=== PATIENT | male | born 1955 | race Two or more races ===

== ENCOUNTER 2017-07-19 01:22 | Emergency (ER) | payer MEDICARE, OTHER ==
[~2017-07-19] VITALS: Ht 165.1 cm; Wt 83.5 kg
[2017-07-19] MEDS ORDERED: cloNIDine HCL 0.1 MG TAB PO ONE (01:45)
[2017-07-19 02:02] LABS: Basophils # (auto) 0.1 uL; Basophils % (auto) 0.8 % (0.0-2.0); CONDITION Y; Eosinophils # (auto) 0.2 uL; Eosinophils % (auto) 2.3 % (0.0-7.0); Hemoglobin 15.3 g/dL (13.5-17.5); Lymphocytes # (auto) 2.1 uL; Lymphocytes % (auto) 24.9 % (10.0-50.0); Mean Corpuscular Hemoglobin 33.1 pg (28.0-32.0); Mean Corpuscular Hgb Conc. 34.8 g/dL (32.0-36.0); Mean Corpuscular Volume 95.2 fL (80.0-100.0); Mean Platelet Volume 7.5 fL (6.9-10.8); Monocytes # (auto) 0.8 uL; Monocytes % (auto) 9.6 % (0.0-12.0); Neutrophils # (auto) 5.2 uL; Neutrophils % (auto) 62.4 % (37.0-80.0); Platelet Count (auto) 349 10^3/uL (140-450); White Blood Cell 8.3 10^3/uL (4.4-10.8)
[2017-07-19 02:28] LABS: Albumin 3.7 g/dL (3.4-5.0); Anion Gap 9 (5-15); Aspartate Aminotransferase 14 U/L (15-37); BUN/Creatinine Ratio 12.8; Blood Urea Nitrogen 24 mg/dL (7-18); Calcium 7.9 mg/dL (8.5-10.1); Carbon Dioxide 24 mmol/L (21-32); Chloride 107 mmol/L (98-107); GFR African American 47 mL/min; GFR Non-African American 39 mL/min; Glucose 111 mg/dL (74-106); Sodium 140 mmol/L (136-145)
[2017-07-19 02:33] LABS: Alkaline Phosphatase 77 U/L (45-117); Bilirubin, Total 0.4 mg/dL (0.2-1.0); INR 0.95 (0.9-1.15); Partial Thromboplastin Time 26.3 sec (22.64-33.71); Prothrombin Time 10.4 sec (9.37-12.3); Total Protein 7.3 g/dL (6.4-8.2)
[2017-07-19 02:40] LABS: B-Type Natriuretic Peptide 42.4 pg/mL (0-100); Temperature: 20.3 C (20.0-25.0)
[2017-07-19] MEDS ORDERED: METOPROLOL TARTRATE 50 MG TAB PO ONE (02:45)
[2017-07-19 04:28] VITALS: BP 109/64
== END 2017-07-19 06:21 | disposition home or self-care (01) ==
LOC: ER 01:24
DX: I12.0 Hypertensive chronic kidney disease with stage 5 chronic kidney disease or end stage renal disease (principal); F32.9 Major depressive disorder, single episode, unspecified; N18.9 Chronic kidney disease, unspecified; E78.5 Hyperlipidemia, unspecified
CPT/HCPCS: 36415; 70450; 71020; 80053; 83880; 84484; 85025; 85610; 85730; 93005; 94761

== ENCOUNTER 2018-06-28 08:01 | Emergency (ER) | payer MEDICARE ==
[~2018-06-28] VITALS: Ht 165.1 cm; Wt 84.8 kg
[2018-06-28] MEDS ORDERED: ACETAMINOPHEN 325 MG TAB PO ONE (08:15)
[2018-06-28 08:59] LABS: Urine Bacteria NONE SEEN /hpf (None Seen); Urine Blood Negative /uL (Negative); Urine Specific Gravity 1.011 (1.001-1.035); Urine WBC <1 /hpf (0 - 3)
[2018-06-28 11:03] LABS: Basophils # (auto) 0.1 uL; Basophils % (auto) 0.8 % (0.0-2.0); Eosinophils # (auto) 0.1 uL; Eosinophils % (auto) 1.5 % (0.0-7.0); Hematocrit 45.9 % (41.0-53.0); Hemoglobin 16.1 g/dL (13.5-17.5); Lymphocytes # (auto) 2.4 uL; Lymphocytes % (auto) 24.1 % (10.0-50.0); Mean Corpuscular Volume 94.4 fL (80.0-100.0); Monocytes # (auto) 0.8 uL; Monocytes % (auto) 8.4 % (0.0-12.0); Neutrophils # (auto) 6.3 uL; Neutrophils % (auto) 65.2 % (37.0-80.0); Platelet Count (auto) 320 10^3/uL (140-450); Red Blood Cells 4.86 10^6/uL (4.5-5.90); Red Cell Distribution Width 12.7 % (11.8-14.3); White Blood Cell 9.7 10^3/uL (4.4-10.8)
[2018-06-28 11:09] LABS: INR 0.92 (0.9-1.15); Partial Thromboplastin Time 26.3 sec (23.78-33.04); Prothrombin Time 9.9 sec (9.27-12.13)
[2018-06-28 11:17] LABS: Albumin 3.9 g/dL (3.4-5.0); BUN/Creatinine Ratio 12.8; Bilirubin, Total 0.5 mg/dL (0.2-1.0); Calcium 8.7 mg/dL (8.5-10.1); Magnesium 2.2 mg/dL (1.6-2.6); Potassium 5.2 mmol/L (3.5-5.1); Total Protein 7.7 g/dL (6.4-8.2)
[2018-06-28] MEDS ORDERED: SODIUM CHLORIDE 0.9% 1,000 ML IV ONE (11:27)
[2018-06-28] MEDS ORDERED: ASPirin 81 mg TAB PO ONE (11:30)
[2018-06-28] MEDS ORDERED: LABETALOL HCL 5 MG/ML ML 20ML VIAL IV ONE (11:30)
[2018-06-28] MEDS ORDERED: hydrALAZINE HCL 25 MG TAB PO ONE (13:00)
[2018-06-28 14:39] VITALS: BP 138/76
== END 2018-06-28 15:28 | disposition home or self-care (01) ==
LOC: ER 08:01
DX: I12.9 Hypertensive chronic kidney disease with stage 1 through stage 4 chronic kidney disease, or unspecified chronic kidney disease (principal); N18.9 Chronic kidney disease, unspecified; R51 Headache; E78.5 Hyperlipidemia, unspecified
CPT/HCPCS: 36415; 71046; 80053; 81001; 83735; 83880; 84443; 84484; 85025; 85610; 85730; 96374; 99285; J7030; 93005

== ENCOUNTER 2018-06-28 23:22 | Emergency (ER) | payer MEDICARE ==
[~2018-06-28] VITALS: Ht 165.1 cm; Wt 84.8 kg
[2018-06-29 07:52] VITALS: BP 154/81
== END 2018-06-29 08:50 | disposition home or self-care (01) ==
LOC: ER 23:25
DX: I12.9 Hypertensive chronic kidney disease with stage 1 through stage 4 chronic kidney disease, or unspecified chronic kidney disease (principal); N18.9 Chronic kidney disease, unspecified; R51 Headache; E78.5 Hyperlipidemia, unspecified
CPT/HCPCS: 70450